=== PATIENT | male | born 1980 | race Caucasian/White ===

== ENCOUNTER 2025-01-22 05:24 | Observation (INO) ==
--- NOTE | 2024-12-31 09:00 | PAT Medication Instructions ---
Medication Instructions Date of Service December 31, 2024 Home Medications Fish Oil 1 cap PO DAILY Gnc Triflex 1 cap PO DAILY cholecalciferol (vitamin D3) 125 mcg (5,000 unit) tablet (Vitamin D3) 125 mcg PO BID hydrocodone 10 mg-acetaminophen 325 mg tablet 1 tab PO TID PRN Pain multivitamin 1 tab PO DAILY STOP taking 2 weeks before surgery (or as soon as possible if surgery is within 2 weeks) Fish Oil 1 cap PO DAILY Gnc Triflex 1 cap PO DAILY DO NOT take the morning of surgery cholecalciferol (vitamin D3) 125 mcg (5,000 unit) tablet (Vitamin D3) 125 mcg PO BID multivitamin 1 tab PO DAILY Take morning of surgery With a small sip of water, OTHERWISE NOTHING TO EAT OR DRINK AFTER MIDNIGHT: hydrocodone 10 mg-acetaminophen 325 mg tablet 1 tab PO TID PRN Pain (if needed) Take evening before surgery cholecalciferol (vitamin D3) 125 mcg (5,000 unit) tablet (Vitamin D3) 125 mcg PO BID hydrocodone 10 mg-acetaminophen 325 mg tablet 1 tab PO TID PRN Pain (if needed) Other Notes If you have any questions please call us at [phone] or [phone] or [phone] or [phone]
--- NOTE | 2025-01-01 14:29 | Anesthesiology Consultation ---
Date of Service January 01, 2025 Assessment & Plan (1) Encounter for pre-operative examination: - Infectious disease screening: Per assessment on 01/01/25- No known recent infectious disease contacts or current infectious disease symptoms. - Patient acceptable risk for surgery pending surgeon-ordered PCP preop evaluation ([facility], appt 01/05). Chart Review Chart Review: Patient seen in Pre Admission Testing Teaching & Discussion Pre-Anesthesia Teaching/Discussion Notes: Instructed NPO after midnight before surgery,except medications with 15 cc of water. Medication instructions provided according to the PAT guidelines. History Surgery Operation Date: 01/22/25 11:05 Proposed Procedures p C4-C7 Anterior Cervical Discectomy and Fusion, with Spinal Cord Monitoring - Toribio Montejo, DO Height/Weight Height: 5 ft 9 in Weight: 114.6 kg Allergies Allergy/AdvReac Type Severity Reaction Status Date / Time Penicillins Allergy Severe Difficulty Verified 12/30/24 15:00 Breathing prednisone AdvReac Intermediate Lower Verified 12/30/24 15:00 Extremity Edema Medications Home Medications Medication Instructions Recorded Confirmed Last Taken Fish Oil 1 cap PO DAILY 12/30/24 12/30/24 Unknown Gnc Triflex 1 cap PO DAILY 12/30/24 12/30/24 Unknown cholecalciferol (vitamin D3) 125 125 mcg PO BID 12/30/24 12/30/24 Unknown mcg (5,000 unit) tablet (Vitamin D3) hydrocodone 10 mg-acetaminophen 1 tab PO TID PRN Pain 12/30/24 12/30/24 Unknown 325 mg tablet multivitamin 1 tab PO DAILY 12/30/24 12/30/24 Unknown Past Medical History Medical History Bulging of cervical intervertebral disc Exercise / Class Metabolic Activity II 4-5 Yardwork/Stairs/Walk up hill (one FS: No CP, no SOB) Past Surgical History Surgical History History of appendectomy History of lumbar discectomy 2016 History of myringotomy History of tonsillectomy and adenoidectomy Past Anesthesia History No Hx of Anesthesia Complications and No Family Hx of Anesthesia Complications History of PONV No Hx of PONV and No Hx of Motion Sickness Social History Smoking Status: Current every day smoker Smoking cigarettes per day: 1 PPD Do You Dip or Chew Tobacco: No Hx Alcohol Use: Yes Alcohol type: beer alcohol intake frequency: holidays/special occasions only Hx Substance Use: No substance use type: does not use Review of Systems Patient denies chest pain, shortness of breath, dyspnea on exertion, fever, chills, cough, wheezing, palpitations. Physical Exam Vital Signs BP 135/83 P 99 TEMP 98.4 SP02 95%RA RESP 16 Physical Full cervical extension range of motion. Full TMJ range of motion. TMD > 3.5 finger breaths Mallampati Score III Dentition: missing sides/molars Lungs: clear throughout to auscultation Cardiac: regular rate and rhythm, no murmurs noted Spine: normal Carotid arteries: negative bruit Extremities: no LE edema Very thick, short neck Lab Results Anesthesia Preop Results Results Anesthesia Widget: WBC 11.00 K/ul (4.8-10.8) H 01/01/25 Hgb 16.8 g/dl (14.0-18.0) 01/01/25 Hct 47.6 % (42.0-52.0) 01/01/25 Plt 229 K/uL (130-400) 01/01/25 Na 136 mmol/L (136-145) 01/01/25 K 3.9 mmol/L (3.5-5.1) 01/01/25 Cl 100 mmol/L (98-107) 01/01/25 CO2 30 mmol/L (21-32) 01/01/25 BUN 19 mg/dl (6-23) 01/01/25 Creat 0.89 mg/dl (0.6-1.4) 01/01/25 Glucose Level 178 mg/dl (70-99(Fasting)) H 01/01/25 PT 11.4 Seconds (9.0-12.0) 01/01/25 PTT 29 Seconds (21-31) 01/01/25 INR 1.1 (0.9-1.1) 01/01/25 Urine Color Yellow 01/01/25 Urine Appearance Clear (Clear) 01/01/25 Urine pH 6.0 (4.5-7.5) 01/01/25 Urine Specific [place] 1.023 (1.000-1.030) 01/01/25 Urine Protein Negative (Negative) 01/01/25 Urine Glucose (UA) Negative (Negative) 01/01/25 Urine Ketones Negative (Negative) 01/01/25 Urine Blood Negative (Negative) 01/01/25 Urine Nitrite Negative (Negative) 01/01/25 Urine Bilirubin Negative (Negative) 01/01/25 Urine Urobilinogen Negative (Negative) 01/01/25 Urine Leukocyte Esterase Negative (Negative) 01/01/25 Blood Type O Negative 01/01/25 Antibody Screen NEGATIVE 01/01/25 Testing Electrocardiogram Date: 01/01/25 NSR at 97bpm. iRBBB. Chest X-Ray Date: 01/01/25 FINDINGS: Heart size and pulmonary vasculature are normal. No effusion or consolidation. IMPRESSION: No acute findings.
[~2025-01-22 05:24] MED LIST: ALLERGY Noted to ORDERED Medication SCH
[2025-01-22] MEDS: LR 60ML/HR IV SCH (05:37)
[2025-01-22] MEDS: VANCOMYCIN HCL 1,750 MG in SODIUM CHLORIDE 0.9% 500 ML IV SCH (05:54)
[2025-01-22] MEDS: LR 15ML/HR IV SCH (05:56)
[2025-01-22] MEDS: ACETAMINOPHEN 500 MG TAB PO SCH (05:56)
[2025-01-22] MEDS: CeleBREX 200 MG CAP PO SCH (05:56)
[2025-01-22] MEDS: GABAPENTIN 900 MG DOSE PO SCH (05:56)
[2025-01-22] MEDS ORDERED: ONDANSETRON INJ 2 MG/ML 2 ML VIAL IV PRN ×2 (06:46→11:56)
[2025-01-22] MEDS ORDERED: PROMETHAZINE HCL 6.25 MG in SODIUM CHLORIDE 0.9% 50 ML IV PRN (06:46)
[2025-01-22] MEDS ORDERED: ATROPINE SULFATE 0.1 MG/ML 10ML SYR IV PRN (06:46)
[2025-01-22] MEDS ORDERED: ePHEDrine sulfate 50 MG/ML AMP IV PRN (06:46)
[2025-01-22] MEDS ORDERED: ROCURONIUM BROMIDE 10 MG/ML 5 ML VIAL IV ONE ×2 (07:11→09:06)
[2025-01-22] MEDS ORDERED: DEXAMETHASONE SOD INJ 4 MG/ML VIAL ONE (07:11)
[2025-01-22] MEDS ORDERED: GLYCOPYRROLATE 0.2 MG/ML VIAL ONE (07:11)
[2025-01-22] MEDS ORDERED: fentaNYL citrate PF 100 MCG/2 ML VIAL ONE ×2 (07:11→09:51)
[2025-01-22] MEDS ORDERED: PROPOFOL IV EMULSION 10 MG/ML 20 ML VIAL IV ONE (07:11)
[2025-01-22] MEDS ORDERED: ONDANSETRON INJ 2 MG/ML 2 ML VIAL ONE (07:11)
[2025-01-22] MEDS ORDERED: MIDAZOLAM HCL 1 MG/ML 2ML VIAL ONE (07:11)
[2025-01-22] MEDS ORDERED: LIDOCAINE 2% 2 ML VIAL/AMP(20MG/ML) INFIL ONE (07:11)
[2025-01-22] MEDS ORDERED: SUGAMMADEX SODIUM 200 MG/2 ML VIAL IV ONE (07:15)
--- NOTE | 2025-01-22 07:39 | History & Physical Bridge Note ---
Date of Service January 22, 2025 History & Physical Bridge Note I have examined the patient, reviewed the History & Physical and in the interval since the performance of the History & Physical I have noted the following changes of clinical significance: no changes noted
--- NOTE | 2025-01-22 07:41 | History & Physical Report ---
Date of Service January 22, 2025 Assessment & Plan (1) Cervical spondylosis with radiculopathy: Plan: C4-C7 anterior cervical discectomy and fusion History of Present Illness Chief Complaint: Neck and arm pain Primary Care Provider: Carmelita England PA-C This 44-year-old male presents with chronic persistent neck and arm pain with failed course of nonoperative care is here for surgical invention. Allergies Allergy/AdvReac Type Severity Reaction Status Date / Time Penicillins Allergy Severe Difficulty Verified 01/22/25 05:30 Breathing prednisone AdvReac Intermediate Lower Verified 01/22/25 05:30 Extremity Edema Home Medications Medication Instructions Recorded Confirmed Type Fish Oil 1 cap PO DAILY 12/30/24 01/22/25 History Gnc Triflex 1 cap PO DAILY 12/30/24 01/22/25 History cholecalciferol (vitamin D3) 125 125 mcg PO BID 12/30/24 01/22/25 History mcg (5,000 unit) tablet (Vitamin D3) hydrocodone 10 mg-acetaminophen 1 tab PO TID PRN Pain 12/30/24 01/22/25 History 325 mg tablet multivitamin 1 tab PO DAILY 12/30/24 01/22/25 History Past Med/Surg History Problem List (Updated 01/22/25 @ 07:41 by Toribio Montejo DO) Cervical spondylosis with radiculopathy Encounter for pre-operative examination Medical History Bulging of cervical intervertebral disc Surgical History History of appendectomy History of lumbar discectomy 2016 History of myringotomy History of tonsillectomy and adenoidectomy Social History Smoking Status: Current every day smoker Tobacco Type: Cigarettes Cigarettes Per Day: 1 PPD; Second Hand Exposure: No; Do You Dip or Chew Tobacco: No; Tobacco Cessation Education Requested by Patient: No Hx Alcohol Use: Yes Alcohol type: beer Hx Substance Use: No Preferred Language: [place] Citizen Communication Ability: Effective Qa Tester Required: No Beliefs That Will Affect Care: None Current Living Situation: Parent Current Living Situation Comment: Mother Other Information That Helps Us Care for You: No Feels Safe at Home: Yes Safety Concerns: Feels Safe At This Time Assistive Devices: None Physical Exam Physical Exam: Patient is alert and oriented heart regular rhythm lungs clear Results & Data Results & Data Vital Signs (Past 12 Hours) Vital Signs Temp Pulse Resp BP Pulse Ox O2 Del Method 01/22/25 05:44 36.9 C 87 20 130/79 94 Room Air
[2025-01-22] MEDS: ceFAZolin 330 MG/ML 1 GM VIAL ONE (08:34)
[2025-01-22] MEDS ORDERED: ePHEDrine sulfate 50 MG/5 ML SYR ONE (09:19)
[2025-01-22] MEDS: FLOSEAL HEMOSTATIC MATRIX 10ML TOP ONE (09:48)
--- NOTE | 2025-01-22 09:56 | Operative Report ---
Post Operative Report Pre & Post Diagnosis Operation Date: 01/22/25 07:45 Pre-Op diagnosis: #1 cervical spondylosis with radiculopathy. #2 obesity. Postop diagnosis: Same I identified the patient and participated in the time-out.: Yes Procedure Operation Date: 01/22/25 07:45 1. Anterior cervical discectomy and bilateral foraminotomies C4-C5 C5-C6 C6-C7. #2 anterior cervical arthrodesis C4-C5 C5-C6 C6-C7. #3 placement of Spira 8 mm cage C4-C5, 7 mm cage C5-C6, and 8 mm cage at C6-C7 all filled with os design bone graft. #4 application of K2 M plate and screws from C4-C7. Surgeon Toribio Montejo, Culture Manager Kathya Chamberlain Estimated Blood Loss 10 Findings See Below The patient is 5 foot 9 weighing over 112 kg with a BMI in excess of 36. The patient's body habitus did contribute to significant technical difficulty with positioning exposure of the procedure itself and at least 50% increased operative time. Specimens None Indications This is a 44-year-old male presents With work-related injury. After failing course of nonoperative care is here for surgical intervention. Description of Procedure Patient was met with identified informed consent obtained. Patient was then taken to the operative suite underwent intubation placed in the supine position on the Josias table with head Anthony greenskeeper head. All bony prominences well- padded eyes inspected to ensure no external pressure placed upon the. This point the anterior cervical spine was prepped and draped in sterile fashion. The assistance of fluoroscopy did find the C5-C6 disc space and a transverse incision was placed along the right anterior aspect of the cervical spine overlying this region. Blunt dissection with the assistance of bipolar electrocautery performed down to and exposing the anterior cervical spine from C4-C7. A separate retractors placed. And then performed a complete discectomy of C4-C5 out to the uncovertebral joints bilaterally. [place] distraction pins utilized to assist in visualization. I removed all posterior annular fibers longitudinal ligament bilateral foraminotomies performed. Endplates. To subc ortical bleeding bone and an 8 mm spiral cage filled with os design bone graft tapped into position. Then proceeded to C5-C6. Again complete discectomy performed up to the uncovertebral joint bilaterally. [place] distracting pins again utilized. Removed all posteriorly fibers longitudinal ligament bilateral foraminotomies performed. Endplates were 2 subcortical bone bone and a 7 mm spiral cage filled with os designed TAPPED in position. Lastly approached C6- C7. Then complete discectomy performed to the uncovertebral joints bilaterally. [place] distraction pins again utilized. Removed all posterior fibers longitudinal ligament bilateral foraminotomies performed. Endplates produce a cortical bone in the 8 mm spiral cage filled with os design bone graft tapped in position. Distracting apparatus was removed. All anterior osteophytes. With smooth cortical surface and a K2 M plate and screws applied with the assistance of fluoroscopy. The incision was then copiously irrigated explored to ensure no damage to surrounding structures or remaining bleeding. 10 round ADELINE drain inserted. Incision was then closed with 2 Vicryl in the fascia and 4 Monocryl for fascial closure. Steri-Strips and sterile dressing placed. Patient waken taken the PACU stable condition. Please note spinal cord monitoring was utilized at the procedure no changes noted. Kathya Chamberlain was present at the entire surgery until the patient positioning complex portions of the surgery and final skin closure. I attest to the content of the Intraoperative Record and any orders documented therein. Any exceptions are noted below.
--- NOTE | 2025-01-22 10:26 | Fluoroscopy Report ---
FL cervical 2-3V CLINICAL HISTORY: C4-C7 COMPARISON STUDY: None FLUOROSCOPY TIME: 15 seconds FLUOROSCOPY IMAGES: 4 EXPOSURE DOSE: 5 mGy FINDINGS: Fluoroscopy was provided for cervical metallic fusion. IMPRESSION: Intraoperative fluoroscopy. ACT 112: Negative or not required by law. Electronically signed by: Tyrese Elder M.D. 01/22/2025 10:24 AM
[2025-01-22] MEDS: fentaNYL citrate PF 100 MCG/2 ML VIAL IV PRN (10:32)
[2025-01-22] MEDS: HYDROmorphone INJ 2 MG/ML SYR/VIAL IV PRN (11:00)
[2025-01-22] MEDS ORDERED: hydrOXYzine HCl 25 MG TAB PO PRN (11:56)
[2025-01-22] MEDS ORDERED: LORazepam 0.5 MG TAB PO PRN (11:56)
[2025-01-22] MEDS ORDERED: ALUMINUM/MAGNESIUM SUSP 30 ML UDC PO PRN (11:56)
[2025-01-22] MEDS ORDERED: traMADol HCL 50 MG TABLET PO PRN (11:56)
[2025-01-22] MEDS ORDERED: DO NOT ADMINISTER PNEUMOCOCCAL VACCINE PRN (11:56)
[2025-01-22] MEDS ORDERED: bisacodyL 10 MG SUPP PR PRN (11:56)
[2025-01-22] MEDS ORDERED: DO NOT ADMINISTER FLU VACCINE PRN (11:56)
[2025-01-22] MEDS ORDERED: dexAMETHasone 8 MG in SYRINGE 0 ML IV PRN (11:56)
[2025-01-22] MEDS ORDERED: ACETAMINOPHEN 1,000 MG/100 ML VIAL IV PRN (11:56)
[2025-01-22] MEDS ORDERED: LORazepam 2 MG/1 ML VIAL IV PRN (11:56)
[2025-01-22] MEDS ORDERED: diphenhydrAMINE Capsule 25 MG CAP PO PRN (11:56)
[2025-01-22] MEDS ORDERED: ONDANSETRON 4 MG OD TAB PO PRN (11:56)
[2025-01-22] MEDS ORDERED: FAMOTIDINE 20 MG TAB PO PRN (11:56)
[2025-01-22] MEDS ORDERED: MAGNESIUM HYDROXIDE SUSP 30 ML UDC PO PRN (11:56)
[2025-01-22] MEDS ORDERED: SOD PHOSPHATE/SOD BIPHOSPHATE ENEMA 132 ML BTL PR PRN (11:56)
[2025-01-22] MEDS ORDERED: PROMETHAZINE 12.5 MG/50.5 ML BAG IV PRN (11:56)
[2025-01-22] MEDS ORDERED: RACEPINEPHRINE 2.25% NEBU SOLN 0.5 ML VIAL INH PRN (11:56)
[2025-01-22] MEDS ORDERED: METOCLOPRAMIDE HCL INJ 5 MG/ML 2 ML VIAL IV PRN (11:56)
[2025-01-22] MEDS ORDERED: NALOXONE HCL 0.4 MG/1 ML VIAL/CARP IV PRN (11:56)
[2025-01-22] MEDS: HYDROmorphone INJ 1 MG/ML SYRINGE IV PRN (12:17)
--- NOTE | 2025-01-22 15:11 | Anesthesiology Progress Note ---
Date of Service January 22, 2025 Anesthesia Post Procedure Vital Signs Vital Signs: Temp Pulse Pulse Resp BP Pulse Ox O2 Del Method 01/22/25 14:27 36.4 C L 68 16 120/76 96 Nasal Cannula 01/22/25 13:26 36.8 C 76 16 128/64 96 Nasal Cannula 01/22/25 13:00 36.7 C 72 16 124/68 96 Nasal Cannula 01/22/25 12:26 36.6 C 72 18 126/64 96 Nasal Cannula 01/22/25 12:09 36.6 C 94 H 16 138/85 93 Nasal Cannula 01/22/25 12:03 95 H 16 96 Nasal Cannula 01/22/25 11:56 36.6 C 64 18 138/74 93 Nasal Cannula 01/22/25 11:30 86 16 135/76 94 Oxymask 01/22/25 11:15 36.6 C 88 16 135/86 94 Oxymask 01/22/25 11:05 90 18 125/83 93 Oxymask 01/22/25 10:55 86 16 138/80 93 Oxymask 01/22/25 10:45 83 18 137/76 94 Oxymask 01/22/25 10:35 81 18 148/89 H 97 Oxymask 01/22/25 10:25 89 14 148/95 H 95 Oxymask 01/22/25 10:15 87 16 154/90 H 96 Oxymask 01/22/25 10:05 36.2 C L 90 16 153/87 H 95 Oxymask 01/22/25 05:44 36.9 C 87 20 130/79 94 Room Air O2 Flow Rate 01/22/25 14:27 3 01/22/25 13:26 3 01/22/25 13:00 3 01/22/25 12:26 3 01/22/25 12:09 3 01/22/25 12:03 2 01/22/25 11:56 3 01/22/25 11:30 3 01/22/25 11:15 3 01/22/25 11:05 4 01/22/25 10:55 6 01/22/25 10:45 8 01/22/25 10:35 10 01/22/25 10:25 10 01/22/25 10:15 10 01/22/25 10:05 10 04/10/25 05:44 Pain Intensity Neck: Pain Intensity: 4 Transfer of Care Handoff Completed per policy Notes Mental Status: alert / awake / arousable and participated in evaluation Patient Amnestic to Procedure: Yes Nausea / Vomiting: adequately controlled Pain: adequately controlled Airway Patency, RR, SpO2: stable & adequate BP & HR: stable & adequate Hydration State: stable & adequate Anesthetic Complications: no major complications apparent and Pt Satisfied with anesthetic care
[2025-01-22] MEDS: CLINDAMYCIN/D5W 600 MG/50 ML BAG IV SCH (15:39)
[2025-01-22] MEDS: oxyCODONE HCL IR 5 MG TAB (IMMEDIATE RELEASE) PO PRN (15:44)
[2025-01-22] MEDS: DOCUSATE SODIUM/SENNA 50/8.6MG TAB PO SCH (21:23)
[2025-01-22] MEDS: CHOLECALCIFEROL 125 MCG (5,000 UNITS) TAB PO SCH (21:23)
[2025-01-22] MEDS: HYDROmorphone INJ 0.5 MG/0.5 ML SYR IV PRN (21:23)
[2025-01-23] MEDS: ACETAMINOPHEN 500 MG TAB PO PRN (04:43)
[2025-01-23] MEDS: POLYETHYLENE (MIRALAX) 17 GM PACK PO SCH (05:18)
[2025-01-23 07:25] VITALS: O2SAT 92
[2025-01-23] MEDS: MULTIVITAMIN TAB PO SCH (08:45)
[2025-01-23] MEDS: dexAMETHasone 6 MG in SYRINGE 0 ML IV SCH (08:46)
[2025-01-23 11:14] VITALS: BP 130/71; PULSE 96; RESP 17; TEMP 98.8
--- NOTE | 2025-01-23 11:41 | Discharge Summary ---
Date of Service January 23, 2025 Admission HPI Per Admitting Provider This 44-year-old male presents with chronic persistent neck and arm pain with failed course of nonoperative care is here for surgical invention. Principal Diagnosis Cervical spondylosis with radiculopathy Discharge Data Allergies Allergy/AdvReac Type Severity Reaction Status Date / Time Penicillins Allergy Severe Difficulty Verified 01/22/25 05:30 Breathing prednisone AdvReac Intermediate Lower Verified 01/22/25 05:30 Extremity Edema Procedures Performed Operation Date: 01/22/25 07:45 Actual Procedures p C4-C7 Anterior Cervical Discectomy and Fusion, Spinal Cord Monitoring(Not Applicable) - Toribio Montejo DO Ordered Studies 01/22/25 06:30 FL cervical 2-3V Routine Hospital Course (1) Cervical spondylosis with radiculopathy: Patient underwent multilevel anterior cervical discectomy and fusion tolerated this well was taken orthopedic for postoperative. Postoperatively he was swallowing well. No hoarseness. Arm symptoms improving. Good strength testing. ADELINE drain decreasing appropriately. Subsidy discharged home. Discharge orders and instructions were on the chart for further review. Total Time Total Time Spent Total Time Spent (In Minutes): 20 minutes Discharge Plan Discharge Items Patient Disposition: Home - Self-Care Reason For Visit: Herniation of Cervical Intervertebral Disc with Ra Discharge Diagnosis: Cervical spondylosis with radiculopathy Activity: As commented below Non-emergency contact: Primary Care Provider Call non-emergency contact if: you have any medication questions Follow-up/Referrals: Carmelita England PA-C [Primary Care Provider] - Diet: Regular Addtl Attending Provider Instructions: ACTIVITY RECOMMENDATIONS: SELF CARE INSTRUCTIONS AFTER CERVICAL FUSIONS 1. No smoking. Smoking drastically decreases the chance of a solid fusion. 2. No bending, lifting more than 5 pounds, or twisting (roll like a log when turning in bed). 3. You may shower 3 days after surgery. Thoroughly dry wound. Do not soak in the tub. 4. Cervical collar: Must be worn at all times including sleeping. You may remove the brace only to bath, eat and if you are sitting in a recliner. 5. Please walk as much as you can for exercise. Gradually increase the distance that you walk as your endurance increases. 6. You may return to previous diet. SPECIAL CARE INSTRUCTIONS: VERY IMPORTANT TO READ AND REVIEW A. Do not take any anti-inflammatory medications (i.e. Indocin, Advil, Aspirin, Naprosyn, Aleve, Motrin, etc.) as these may inhibit the chance of a solid fusion. Tylenol is okay to take. B. Your surgical incision has been closed with a cosmetic suture under the skin that will dissolve in about 6 weeks. In 14 days, you can use a pair of clean scissors and cut the suture that is left outside of the skin at the ends of your incision. C. Complications are uncommon, but please contact us if you have any signs or symptoms of: 1. wound infection (fever higher than 102.5 degrees F, redness, separation of wound, drainage, or increasing pain from the incision) 2. blood clots in legs (pain, swelling, redness and warmth in legs) 3. urinary tract infection (fever higher than 102.5 degrees, burning upon urination or increased frequency of urination) 4. nerve problems (inability to walk on your toes or heels, numbness, loss of bowel or bladder control) 5. any other symptoms that concern you. D. Please call the office at if you have any concerns or questions about your operation or recovery. MANAGING PAIN AFTER SPINAL SURGERY 1. Narcotic medication is intended for short-term use and will be provided for surgical pain. Surgical pain usually lasts for a period of 4-6 weeks. Narcotic medication includes Percocet, Vicodin, Darvocet, Tylenol #3 or Lortab. 2. Longer-term pain is more appropriately treated with non-narcotic medication such as Tylenol ES. 3. Muscle spasm is not appropriately treated with narcotics. Muscle relaxers such as Soma, Flexeril or Skelaxin can be used along with Tylenol ES. 4. Remember that we all live with some "aches and pains". This is not unusual or uncommon after an injury or as we get older. 5. We will provide appropriate medication within the normal guidelines of their prescribed use. We will also be very cautious and aware of potential abuse and extended duration of patients' medication needs. 6. Please allow 2-3 days to process refills. Prescriptions will not be mailed but must be picked up at the office. FOLLOW UP VISIT: Keep your scheduled follow-up appointment. Any questions, please call the office at . Pending Studies at Discharge: No Stand-Alone Forms: [facility] Social Rewards, Pain - Opioid Pain Management, Smoking Cessation Medications and DC Order Prescriptions: New tramadol 50 mg tablet 50 mg PO Q6H PRN (Reason: pain, moderate) Qty: 30 0RF oxycodone 5 mg tablet 5 mg PO Q6H PRN (Reason: pain) Qty: 30 0RF Continued multivitamin Tablet 1 tab PO DAILY hydrocodone-acetaminophen 10-325 mg Tablet 1 tab PO TID PRN (Reason: Pain) cholecalciferol (vitamin D3) [Vitamin D3] 125 mcg (5,000 unit) Tablet 125 mcg PO BID Rx Instructions: preop Fish Oil 1 cap PO DAILY Gnc Triflex 1 cap PO DAILY Discharge Orders: Discharge Order (Routine); Ordered 01/23/25 Ordered By: Toribio Self/Other Patient Handouts: DVT Post Op Prevention, Cervical Disk Surg Dc Admission Data Admit Date/Time: 01/22/25 09:59 Attending Provider: Toribio Montejo Admit Provider: Toribio Montejo Primary Care Provider: Carmelita England Other Interventions: Discharge Summary Assessment (RN) Last Done: 01/23/25 10:11
== END 2025-01-23 11:35 | disposition home or self-care (01) ==
LOC: ASU 05:24 → INTOOBSV 08:56 → PACUINP 08:56 → 3E 11:49
DX: E66.9 Obesity, unspecified; Z88.0 Allergy status to penicillin; M47.22 Other spondylosis with radiculopathy, cervical region; F17.210 Nicotine dependence, cigarettes, uncomplicated; Z88.8 Allergy status to other drugs, medicaments and biological substances